=== PATIENT | male | born 1995 | race Caucasian/White ===

== ENCOUNTER 2017-12-11 19:28 | Emergency (ER) | payer MEDICAID ==
[~2017-12-11] VITALS: Ht 177.8 cm; Wt 113.6 kg
[~2017-12-11 19:28] MED LIST: LIDO20SO PO
[2017-12-11] MEDS ORDERED: LIDOcaine 1.5% w/epinephrine 1:200,000 5ml ampul IJ ONE (21:55)
[2017-12-11 22:01] VITALS: BP 120/69
[2017-12-12] MEDS ORDERED: mupirocin 2% ointment 22GM TP STA (00:01)
[2017-12-13] MEDS ORDERED: IBUP-1985 PO (23:49)
== END 2017-12-12 01:03 | disposition home or self-care (01) ==
LOC: ER 19:28
DX: S51.842A Puncture wound with foreign body of left forearm, initial encounter (principal); Z56.0 Unemployment, unspecified; Z79.899 Other long term (current) drug therapy; W34.09XA Accidental discharge from other specified firearms, initial encounter; Y93.89 Activity, other specified; Y92.89 Other specified places as the place of occurrence of the external cause; Y99.8 Other external cause status
CPT/HCPCS: 10120; 73090; 99284; J3490

== ENCOUNTER 2017-12-13 22:08 | Emergency (ER) | payer MEDICAID ==
[~2017-12-13] VITALS: Ht 177.8 cm; Wt 113.6 kg
[2017-12-13 22:18] VITALS: BP 136/49
[2017-12-13] MEDS ORDERED: ketorolac trometh. 30mg/ml inj. IM ONE (23:25)
[2017-12-13 23:29] LABS: CLARITY,URINE CLEAR (Clear); COLOR,URINE YELLOW (Yellow); GLUCOSE, URINE NEGATIVE (Neg); KETONES,URINE NEGATIVE (Neg); LEUKOCYTE ESTERASE ,URINE NEGATIVE (Neg); NITRITES, URINE NEGATIVE (Neg); OCCULT BLOOD,URINE NEGATIVE (Neg); PH,URINE 5.5 (4.8-8.0); PROTEIN,URINE NEGATIVE (Neg); UROBILINOGEN,URINE 0.2 E.U/dL (0.2-1.0)
[2017-12-13 23:30] LABS: UA COLLECTION TYPE CLN CATCH MIDSTREAM
[2017-12-13] MEDS ORDERED: IBUP-1985 PO (23:49)
== END 2017-12-14 00:06 | disposition home or self-care (01) ==
LOC: ER 22:09
DX: M54.5 Low back pain (principal); F12.10 Cannabis abuse, uncomplicated; F17.200 Nicotine dependence, unspecified, uncomplicated; Z56.0 Unemployment, unspecified
CPT/HCPCS: 81003; 96372; 99283; J1885

== ENCOUNTER 2017-12-23 09:07 | Emergency (ER) | payer MEDICAID ==
[~2017-12-23] VITALS: Ht 177.8 cm; Wt 116.8 kg
[~2017-12-23 09:07] MED LIST changes: +IBUP-1985 PO
[2017-12-23] MEDS ORDERED: MUPI22OI30 TOP (09:28)
[2017-12-23 09:49] VITALS: BP 130/89
== END 2017-12-23 10:12 | disposition home or self-care (01) ==
LOC: ER 09:08
DX: Z48.02 Encounter for removal of sutures (principal); F12.10 Cannabis abuse, uncomplicated; Z56.0 Unemployment, unspecified
CPT/HCPCS: 99283

== ENCOUNTER 2020-02-22 02:28 | Emergency (ER) | payer MEDICAID ==
[~2020-02-22] VITALS: Ht 177.8 cm; Wt 90.0 kg
[2020-02-22 02:34] VITALS: BP 115/86
--- NOTE | 2020-02-22 02:40 | NUR ---
hussain contacted case#[id number]
[2020-02-22] MEDS ORDERED: NALO4SPR BOTHNARES (03:04)
[2020-02-22] MEDS ORDERED: CefTRIAXone 250MG IM Kit w/LIDOcaine IM ONE (03:05)
[2020-02-22] MEDS ORDERED: azithromycin 250mg tablet PO ONE (03:05)
[2020-02-22 03:21] LABS: COLOR,URINE YELLOW (Yellow); GLUCOSE, URINE NEGATIVE (Neg); KETONES,URINE TRACE mg/dl (Neg); LEUKOCYTE ESTERASE ,URINE TRACE (Neg); NITRITES, URINE NEGATIVE (Neg); OCCULT BLOOD,URINE TRACE-INTACT (Neg); PROTEIN,URINE TRACE mg/dl (Neg)
[2020-02-22 03:27] LABS: UA COLLECTION TYPE URINAL
[2020-02-22 03:28] LABS: CLARITY,URINE SLIGHTLY CLOUDY (Clear)
[2020-02-22 03:29] LABS: BACTERIA,URINE FEW /HPF (Neg); CAL OXALATE CRYSTALS 1+ /HPF (NEGATIVE); MUCUS STRANDS FEW /LPF (Neg); RBC,URINE 0-2 /HPF (0-2); SQUAMOUS EPITHELIAL CELL,UR FEW /LPF (FEW); WBC,URINE 20-30 /HPF (0-4)
== END 2020-02-22 03:19 | disposition home or self-care (01) ==
LOC: ER 02:29
DX: S02.2XXA Fracture of nasal bones, initial encounter for closed fracture (principal); F11.10 Opioid abuse, uncomplicated; F12.90 Cannabis use, unspecified, uncomplicated; Z11.3 Encounter for screening for infections with a predominantly sexual mode of transmission; Z79.899 Other long term (current) drug therapy; Y08.89XA Assault by other specified means, initial encounter; Y93.89 Activity, other specified; Y92.89 Other specified places as the place of occurrence of the external cause; Y99.8 Other external cause status
CPT/HCPCS: 81001; 87088; 96372; 99283; J0696

== ENCOUNTER 2020-07-06 17:07 | Emergency (ER) | payer MEDICAID ==
[~2020-07-06] VITALS: Ht 177.8 cm; Wt 85.6 kg
[~2020-07-06 17:07] MED LIST changes: +NALO4SPR BOTHNARES
[2020-07-06 17:19] VITALS: BP 119/72
[2020-07-06] MEDS ORDERED: AMOX-422 PO (22:06)
== END 2020-07-06 18:00 | disposition left against medical advice (07) ==
LOC: ER 17:08
DX: S51.852A Open bite of left forearm, initial encounter (principal); Z53.21 Procedure and treatment not carried out due to patient leaving prior to being seen by health care provider; W54.0XXA Bitten by dog, initial encounter; Y93.89 Activity, other specified; Y92.89 Other specified places as the place of occurrence of the external cause; Y99.8 Other external cause status

== ENCOUNTER 2020-07-06 21:29 | Emergency (ER) | payer MEDICAID ==
[~2020-07-06] VITALS: Ht 177.8 cm; Wt 86.3 kg
[2020-07-06 21:32] VITALS: BP 133/82
[2020-07-06] MEDS ORDERED: LIDOcaine 1% W/epiNEPHrine 1:200,000 10ml vial IJ ONE (21:45)
[2020-07-06] MEDS ORDERED: LIDOcaine 1% w/epiNEPHrine 1:200,000 30ml vial IJ ONE (22:00)
--- NOTE | 2020-07-06 22:02 | NUR ---
Bite report complete and given to registration to fax to animal control.
[2020-07-06] MEDS ORDERED: AMOX-422 PO (22:06)
--- NOTE | 2020-07-08 11:00 | NUR ---
Patient eloped and did not receive discharge paperwork and prescription for abx. Patient does not have a listed phone number so I spoke with person to notify which was his grandmother, Chante. She stated that she had no way of getting a hold of her grandson because he is "homeless and a heroin addict." She also stated that she had spoke with him a few nights ago about him getting bit by a dog, but not sure how he contacted her. I stated if she heard from him to tell him that he will need abx for the dog bite. She agreed and discontinued to conversation.
== END 2020-07-06 22:37 | disposition home or self-care (01) ==
LOC: ER 21:29
DX: S51.832A Puncture wound without foreign body of left forearm, initial encounter (principal); F12.90 Cannabis use, unspecified, uncomplicated; F11.90 Opioid use, unspecified, uncomplicated; Z72.89 Other problems related to lifestyle; Z56.0 Unemployment, unspecified; Z79.899 Other long term (current) drug therapy; W54.0XXA Bitten by dog, initial encounter; Y93.89 Activity, other specified; Y92.89 Other specified places as the place of occurrence of the external cause; Y99.8 Other external cause status
CPT/HCPCS: 73090; 96374; 99283